=== PATIENT | male | born 1940 | race Caucasian/White ===

== ENCOUNTER 2016-12-03 07:24 | Day surgery (SDC) | payer OTHER ==
[~2016-12-03] VITALS: Ht 175.3 cm; Wt 122.3 kg
[~2016-12-03 07:24] MED LIST: 1-ME1LIQ PO; ALBU8I INH; ALL220TA PO; ATOR40TA49 PO; BACL10TA PO; CHLO50TA PO; CIAL5TAB PO; CINN500C7 PO; CO-E50CA PO; COUM10TA PO; COUM5TAB PO; GABA300C3 PO; GLIM4TAB PO; LANTUS2P SC; LISI-366 PO; METF1000 PO; ST JTAB PO; TAB-TAB PO; VITACAP32 PO; VITATAB11 PO; VITD400 PO
[2016-12-03] MEDS ORDERED: NS 1000 ML IV SCH (07:45)
[2016-12-03] MEDS ORDERED: MUPIROCIN 2% OINT 1 APPLIC/GM SYR NASAL SCH (07:45)
[2016-12-03] MEDS ORDERED: FENO54TA PO (07:50)
[2016-12-03] MEDS ORDERED: HYDR25TA5 PO (07:50)
[2016-12-03] MEDS ORDERED: OMEP40CA2 PO (07:50)
[2016-12-03] MEDS ORDERED: ROSU1TAB8 PO (07:50)
[2016-12-03] MEDS ORDERED: CART240C PO (07:50)
[2016-12-03] MEDS ORDERED: INSU1.2I SQ (07:50)
[2016-12-03 07:55] VITALS: BP 179/82; PULSE 52; RESP 22; TEMP 97.6; O2SAT 97
[2016-12-03] MEDS ORDERED: CHLORHEXIDINE GLUCONATE 2 % 1 PACK (2 CLOTHS) TOPICAL SCH (08:00)
[2016-12-03] MEDS ORDERED: VANCOMYCIN 1000 MG/NS 250 ML IV SCH ×2 (08:00)
[2016-12-03] MEDS ORDERED: POVIDONE IODINE 5% (ANTISEPSIS KIT) 4 APPLICATIONS EACH NARE SCH (08:00)
[2016-12-03] MEDS ORDERED: ceFAZolin 2 GM PREMIX 50 ML IV SCH (08:00)
[2016-12-03 08:18] LABS: AUTOMATED NEUTROPHIL # 7.5 TH/MM3 (1.8-7.7); BASOPHIL # 0.1 TH/MM3 (0-0.2); BASOPHIL % 0.8 % (0.0-2.0); EOSINOPHIL # 0.3 TH/MM3 (0-0.4); EOSINOPHIL % 2.8 % (0.0-4.0); HEMATOCRIT 36.8 % (39.0-51.0); HEMO FLAGS DIFF FINAL; LYMPH % 13.2 % (9.0-44.0); LYMPHOCYTE # 1.3 TH/MM3 (1.0-4.8); MEAN CELL VOLUME 87.3 FL (80.0-100.0); MEAN CORPUSCULAR HEMOGLOBIN 28.2 PG (27.0-34.0); MEAN CORPUSCULAR HGB CONC 32.3 % (32.0-36.0); MONO % 6.2 % (0.0-8.0); PLATELET COUNT 203 TH/MM3 (150-450); RED BLOOD COUNT 4.22 MIL/MM3 (4.50-5.90); WHITE BLOOD COUNT 9.7 TH/MM3 (4.0-11.0)
[2016-12-03 08:23] LABS: APTT (PATIENT) 26.2 SEC (24.3-30.1); PROTHROMBIN TIME - PATIENT 10.9 SEC (9.8-11.6)
[2016-12-03] MEDS ORDERED: METOPROLOL TARTRATE 25 MG TAB PO PRN (08:30)
[2016-12-03] MEDS ORDERED: INSULIN HUMAN REGULAR 1,000 UNITS/10 ML VIAL SQ PRN (08:30)
[2016-12-03] MEDS ORDERED: LACTATED RINGER'S 1000 ML IV SCH (08:30)
[2016-12-03] MEDS ORDERED: SODIUM CHLORID 0.9% 500 ML IV SCH (08:30)
[2016-12-03 08:38] LABS: BICARBONATE 28.9 MEQ/L (21.0-32.0)
[2016-12-03] MEDS ORDERED: VANCOMYCIN 500 MG VIAL ONE (10:35)
[2016-12-03] MEDS ORDERED: LIDOCAINE HCL 2% 50 ML VIAL ONE (10:35)
--- NOTE | 2016-12-03 11:26 | PD.CARD ---
PPM GENERATOR REPLACEMENT PROCEDURE DATE: Dec 03, 2016 PPM GENERATOR REPLACEMENT PROC PROCEDURE PERFORMED Permanent pacemaker removal, permanent pacemaker replacement, pocket revision. Mr. Burns is a 76 -year-old male with history of symptomatic bradycardia, previous pacer implanted in 2009. Generator end of life, admits for generator replacement. The risks, the nature and the benefit of the procedure were clearly stated to him. The risks include pneumothorax, cardiac perforation, stroke and even . The patient understood and agreed to proceed. PROCEDURE After written informed consent was obtained, the patient was brought to the EP lab where was prepped and draped in the sterile fashion. Conscious sedation was initiated using intravenous Versed and introducer intravenous fentanyl. Once sedation was verified, the left infraclavicular area over the generator was anesthetized with 2% Xylocaine. Using a #11 scalpel, a 3 centimeter incision was made over the existing generator. Dissection was then taken down to deep fascial layer using Bovie cautery and blunt dissection. Once exposed, the generator was removed from the pocket. The pocket was expanded. Scar tissue was removed around the leads. Then, the leads were disconnected and tested. At that point, the pocket was copiously irrigated using antibiotic solution. The leads were connected to the new generator and placed into the pocket. The pacemaker was interrogated. He was A-sensing, V-pacing. I did proceed with wound closure. The deep fascial layer was approximated with 2-0 Vicryl suture in a continuous fashion. The subcutaneous layer was approximated with 2-0 Vicryl suture in a continuous fashion. Dermabond adhesive was applied to the wound followed by a sterile pressure dressing. There was no complication. The patient tolerated procedure. Blood loss minimal. EXPLANTED HARDWARE The explanted permanent pacemaker is a [employer]. Model # Cylos DR serial number [id number]. For information about the existing leads, please refer to previous dictation. IMPLANTED HARDWARE The implanted permanent pacemaker is a [employer] model number 839493, serial number [id number]. THRESHOLDS The right atrial pacing threshold in bipolar mode was 0.8 volt at 0.4 milliseconds. Lead impedance 390 ohms and P wave at 3.2 millivolts. The right ventricular pacing threshold in bipolar mode was 1.0 volts at 0.4 milliseconds. Lead impedance 800 ohms. SETTINGS The device is set in a DDD 60. Upper limit 120 beats per minute. Hysteresis and mode switch are on. CONCLUSIONS Successful permanent pacemaker removal, permanent pacemaker implantation, pocket revision. COMMENT AND RECOMMENDATIONS The patient will be transferred to the telemetry unit. He will be observed. The patient will be discharged home later on today. Steph Jeffries MD Dec 03, 2016 11:26
[2016-12-03] MEDS ORDERED: CEPH-460 PO (11:30)
[2016-12-03] MEDS ORDERED: ACET300T2 PO (11:30)
[2016-12-03] MEDS ORDERED: ACETAMINOPHEN/CODEINE 300 MG/30 MG TAB PO PRN ×2 (11:30)
[2016-12-03] MEDS ORDERED: ONDANSETRON HCL 4 MG/2 ML VIAL IV PRN (11:30)
[2016-12-03] MEDS ORDERED: PROPOFOL 200 MG/20 ML AMP OTHER ONE (12:43)
--- NOTE | 2016-12-03 22:36 | EKG ---
Date Performed: 12/03/2016 Time Performed: 12:54:42 PTAGE: 76 years EKG: Atrial pacing. Right bundle branch block Possible LVH with secondary repolarization abnorma lity Inferior/lateral ST-T changes are probably due to ventricular hypertrophy Abnormal ECG PREVIOUS TRACING : 12/03/2016 08.17 Compared to the previous tracing RBBB present DOCTOR: Doc Stevenson Interpretating Date/Time 12/03/2016 22:35:45
--- NOTE | 2016-12-04 07:35 | EKG ---
Date Performed: 12/03/2016 Time Performed: 08:17:42 PTAGE: 76 years EKG: Paced ventricular rhythm Retrograde atrial capture is suspected on the basis of this tracin g and pacemaker syndrome should be excluded clinically. The underlying atrial rhythm cannot be determ ined but again if there is retrograde atrial capture it may be paced. Abnormal ECG PREVIOUS TRACING : 05/13/2014 06.04 DOCTOR: Diana Espinal Interpretating Date/Time 12/04/2016 07:34:46
== END 2016-12-03 13:15 | disposition home or self-care (01) ==
LOC: HDIC 07:24 → HDOC 07:24
PROVIDERS: ATTEND Internal Medicine Interventional Cardiology
DX: Z45.010 Encounter for checking and testing of cardiac pacemaker pulse generator [battery] (principal); I49.5 Sick sinus syndrome; I48.91 Unspecified atrial fibrillation; I12.9 Hypertensive chronic kidney disease with stage 1 through stage 4 chronic kidney disease, or unspecified chronic kidney disease; E11.22 Type 2 diabetes mellitus with diabetic chronic kidney disease; N18.3 Chronic kidney disease, stage 3 (moderate); J44.9 Chronic obstructive pulmonary disease, unspecified; Z79.01 Long term (current) use of anticoagulants
CPT/HCPCS: 00400; 33228; 80048; 85025; 85610; 85730; 86850; 86900; 86901; 93005; C1785; J3010; J3370; J7030

== ENCOUNTER 2018-02-13 11:37 | Day surgery (SDC) | payer OTHER ==
[~2018-02-13 11:37] MED LIST changes: -1-ME1LIQ PO; +ACET300T2 PO; -ALBU8I INH; -ALL220TA PO; -ATOR40TA49 PO; -BACL10TA PO; +CART240C PO; +CEPH-460 PO; -CINN500C7 PO; -CO-E50CA PO; -COUM10TA PO; -COUM5TAB PO; +FENO54TA PO; +HYDR25TA5 PO; +INSU1.2I SQ; -LANTUS2P SC; -METF1000 PO; +OMEP40CA2 PO; +ROSU1TAB8 PO; -ST JTAB PO; -TAB-TAB PO
[2018-02-13] MEDS ORDERED: LACTATED RINGER'S 1000 ML IV PRN (12:30)
[2018-02-13] MEDS ORDERED: POVIDONE IODINE 5% (ANTISEPSIS KIT) 4 APPLICATIONS EACH NARE PRN (12:30)
[2018-02-13] MEDS ORDERED: METOPROLOL TARTRATE 25 MG TAB PO PRN (12:30)
[2018-02-13] MEDS ORDERED: CHLORHEXIDINE GLUCONATE 2 % 1 PACK (2 CLOTHS) TOPICAL PRN (12:30)
[2018-02-13] MEDS ORDERED: SODIUM CHLORID 0.9% 500 ML IV PRN (12:30)
[2018-02-13] MEDS ORDERED: CIAL5TAB PO (12:40)
[2018-02-13] MEDS ORDERED: CART120C PO (12:40)
[2018-02-13] MEDS ORDERED: CHOL10008 P-ARTICULR (12:40)
[2018-02-13] MEDS ORDERED: APIX5TAB PO (12:40)
[2018-02-13] MEDS ORDERED: LISI40TA PO (12:40)
[2018-02-13] MEDS ORDERED: ROSU1TAB10 PO (12:40)
[2018-02-13] MEDS ORDERED: MECL-62 PO (12:40)
[2018-02-13] MEDS ORDERED: GABA600T PO (12:40)
[2018-02-13] MEDS ORDERED: FURO40TA PO (12:40)
[2018-02-13] MEDS ORDERED: DOXA1TAB35 PO (12:40)
[2018-02-13] MEDS ORDERED: vitamin b PO (12:40)
[2018-02-13] MEDS ORDERED: VITA250T3 PO (12:40)
[2018-02-13] MEDS ORDERED: GLIM4TAB PO (12:40)
--- NOTE | 2018-02-14 15:05 | EKG ---
Date Performed: 02/13/2018 Time Performed: 15:54:30 PTAGE: 77 years EKG: Sinus arrhythmia Demand atrial pacing. Right bundle branch block Inferior/lateral ST-T norris ges may be due to myocardial ischemia Abnormal ECG PREVIOUS TRACING : 02/13/2018 12.04 Since the previous tracing, no significant change noted DOCTOR: Levi Baum Interpretating Date/Time 02/14/2018 15:04:23
--- NOTE | 2018-02-14 15:14 | EKG ---
Date Performed: 02/13/2018 Time Performed: 12:04:04 PTAGE: 77 years EKG: Possible atrial fibrillation Demand pacing. Right bundle branch block LVH with secondary r epolarization abnormality Inferior/lateral ST-T changes are probably due to ventricular hypertrophy A bnormal ECG PREVIOUS TRACING : 12/03/2016 12.54 DOCTOR: Levi Baum Interpretating Date/Time 02/14/2018 15:12:19
== END 2018-02-13 17:19 | disposition home or self-care (01) ==
LOC: HDOC 11:37 → HDIC 11:38 → HDOC 17:19
PROVIDERS: ATTEND Internal Medicine Interventional Cardiology
DX: I48.91 Unspecified atrial fibrillation (principal); R00.1 Bradycardia, unspecified; I25.2 Old myocardial infarction; E11.9 Type 2 diabetes mellitus without complications; R31.9 Hematuria, unspecified; E78.5 Hyperlipidemia, unspecified; G47.30 Sleep apnea, unspecified; J44.9 Chronic obstructive pulmonary disease, unspecified; I13.10 Hypertensive heart and chronic kidney disease without heart failure, with stage 1 through stage 4 chronic kidney disease, or unspecified chronic kidney disease; E11.22 Type 2 diabetes mellitus with diabetic chronic kidney disease; N18.3 Chronic kidney disease, stage 3 (moderate); G45.9 Transient cerebral ischemic attack, unspecified; Z96.651 Presence of right artificial knee joint
CPT/HCPCS: 92960; 93005; 93312; 93320; 93325